=== PATIENT | male | born 1950 | race Caucasian/White ===

== ENCOUNTER 2023-01-25 14:27 | Observation (INO) | payer MEDICARE, MEDICAID, SELFPAY ==
[2023-01-25] VITALS (8 sets, daily range): BP systolic 133–143; BP diastolic 73–97; PULSE 66–96; RESP 16–30; TEMP 36.6–37.2; O2SAT 94–99; BMI 23.3; BMI 21.5
--- NOTE | 2023-01-25 14:55 | EKG12_ITS ---
Test Reason : Blood Pressure : / mmHG Vent. Rate : 067 BPM Atrial Rate : 067 BPM P-R Int : 160 ms QRS Dur : 092 ms QT Int : 416 ms P-R-T Axes : 084 063 052 degrees QTc Int : 439 ms Normal sinus rhythm Poor R wave progression Confirmed by ISAAC JACKSON, TEE ([id number]), assignment editor ELIZABETH CHRISTENSEN ([id number]) on 01/27/2023 10:03:06 AM Referred By: LIZ Confirmed By:TEE GRAY MD
--- NOTE | 2023-01-25 14:57 | EDS_ITS ---
HPI History of Present Illness Chief Complaint: Shortness of Breath Informant: patient Narrative Narrative: Worsening dyspnea wheeze since this morning along with left-sided sharp chest pain. No nausea or vomiting. No home oxygen. 1 pack/day smoker. No history of diabetes. History of chronic back pain. Reports similar symptoms from 2 months ago when he received 1 heart stent at [facility]. He states only 1 vessel no other blockages. Discussed his medications he states he does not take antiplatelet medicines we discussed aspirin Plavix Brilinta. He is not on a statin either. He brought his medicines which was reviewed noting metoprolol, gabapentin, and tizanidine. He states he was not scheduled for any cardiac rehab with a stent placement. Prior similar symptoms: Yes PFSH PFS Medical History Asthma COPD (chronic obstructive pulmonary disease) Hypertension Allergy/AdvReac Type Severity Reaction Status Date / Time ketorolac [From Toradol] Allergy Other Verified 01/25/23 14:30 tetracycline Allergy Hives Verified 01/25/23 14:30 Surgical History Previous back surgery Stented coronary artery Social History Smoking Status: Current every day smoker tobacco type: cigarettes ROS ROS ED Constitutional Constitutional ED: Denies chills, fever(s) or sweats Eyes Eyes: Denies change in vision ENT ENT ED: Denies dysphagia or sore throat Cardiovascular Cardiovascular: Reports chest pain; Denies leg edema, palpitations or racing heartbeat Respiratory/Chest Respiratory/Chest: Reports dyspnea; Denies cough or dyspnea on exertion Gastrointestinal Gastrointestinal: Denies abdominal pain, diarrhea, nausea or vomiting Genitourinary Genitourinary ED: Denies dysuria, hematuria or urinary frequency Musculoskeletal Musculoskeletal: Denies back pain, extremity pain or neck pain Integumentary Denies rash or wounds Neurologic Neurologic: Denies headache(s), paresthesias or weakness EXAM Physical Exam Const Vital Signs: 01/25/23 14:32 01/25/23 14:34 01/25/23 15:24 Temperature 98.1 F Temperature Source Temporal Pulse Rate 72 Respiratory Rate 23 H Respiratory Pattern Tachypnea Blood Pressure 137/97 H Blood Pressure Mean 110 Pulse Ox 99 Oxygen Delivery Method Room Air Room Air 01/25/23 15:24 01/25/23 17:32 01/25/23 17:37 Temperature Temperature Source Pulse Rate 66 71 Respiratory Rate 24 H 30 H Respiratory Pattern Tachypnea Blood Pressure 143/73 H Blood Pressure Mean 96 Pulse Ox 96 Oxygen Delivery Method Positive well nourished and well developed Constitutional Narrative: Speaking in short sentences mild sensory muscle use. General Appearance ED: well developed HEENT Reports moist mucous membranes normocephalic and atraumatic Eyes PERRL, EOMs intact bilaterally and conjunctivae normal General Eye ED: Yes normal appearance of both eyes Neck no lymphadenopathy and supple General: Negative for tenderness Chest Wall Chest: Negative for tenderness Resp normal respiratory effort Resp Narrative: Expiratory wheezes, slight tachypnea Effort and Inspection: symmetric chest movement Cardio regular rate, regular rhythm and no murmurs Peripheral Pulses: pulses 2+ throughout GI normal to inspection, nondistended, normoactive bowel sounds and non-tender Palpation: Negative for guarding or rebound tenderness present Back/Spine no CVA tenderness and no thoracic nor lumbar tenderness Extremity normal to inspection General Extremety ED: Negative for edema or tenderness General Extremity: Negative for edema Neuro oriented x3 and no sensory deficits noted Sensorium / Orientation: awake and alert Skin no rashes or lesions noted and no wounds MDM MDM MDM Narrative Medical decision making narrative: Interventions / MDM: Differential diagnosis: COPD exacerbation, atypical chest pain, ACS Diagnosis considered but do not suspect: N/A My EKG interpretation: Sinus rate of 67, no ST or T wave changes. EKG #2 at 1654: Unchanged Imaging independently reviewed and interpreted by myself: 1 view chest x-ray no infiltrates External documents reviewed: Clinisync evaluation: Heart catheterization September 09, 2022 from [facility] 80% LAD with drug-eluting stent, 60% left circumflex, 4050% RCA. EF of 55%. Also L2-L3 lumbar decompression surgery November of this year. Test considered but not ordered:N/A ED course: Patient presenting with wheezing speaking in short sentences he is given steroids aerosol treatments with improvement symptoms. With chest pain aspirin was given. Cardiac work-up initiated. Chest x-ray. Re-evaluation: stable, improved dyspnea and wheezing chest pain resolved with aspirin per patient. 3.3 or replaced. Initial troponin and sent before in the range. I was able to obtain records no needed have a cath with stent in August 5 months ago there was recommend dual platelet therapy for a month. He reports he has not sent home with any of his medications. I did reach out to display department manager Dr. Gomez, states and agrees with delta troponin if negative, he will need his aspirin Plavix and statin and following with his display department manager. Reported with positive recommended transfer to his display department manager. Results delta troponin was negative. Repeat EKG was also negative. Low back discussed with patient plan of care with plan on writing prescriptions for his medications however he requests asking to see social work. Further discussion with him, he states he cannot get his medications and afford them for at least a month. There is no current social sciences chair case management available. Therefore I spoke with hospitalist Dr. Whiting. Discussed patient's issues and presentation. He will be admitted to observation as to PCU. Disposition discussed with patient/family/significant other: Patient Case discussed with consulting clinician: Cardiology, Dr. Gomez History & Record Review Additional record(s) reviewed:: Prior outpatient record Lab Data Attestation: I reviewed the patient's lab results. Labs: Laboratory Results - last 24 hr 01/25/23 01/25/23 01/25/23 14:45 14:45 14:45 WBC 7.0 RBC 4.71 Hgb 14.7 Hct 43.5 MCV 92.4 MCH 31.2 MCHC 33.8 RDW Std Deviation 45.8 H RDW Coeff of Dania 13.4 Plt Count 263 MPV 9.7 Immature Gran % (Auto) 0.100 Neut % (Auto) 63.0 Lymph % (Auto) 24.1 Camp % (Auto) 10.8 H Eos % (Auto) 1.3 Baso % (Auto) 0.7 Absolute Neuts (auto) 4.4 Absolute Lymphs (auto) 1.69 Nucleated RBC % 0 PT 13.6 INR 1.1 APTT 26.2 Sodium 136 Potassium 3.3 L Chloride 104 Carbon Dioxide 24.0 Anion Gap 8 BUN 22 H Creatinine 1.01 Estim Creat Clear Calc 78.00 Est GFR (MDRD) Af Amer 94 Est GFR (MDRD) Non-Af 77 BUN/Creatinine Ratio 21.8 H Glucose 114 H Calcium 9.5 Troponin I High Sens 74 01/25/23 17:10 WBC RBC Hgb Hct MCV MCH MCHC RDW Std Deviation RDW Coeff of Dania Plt Count MPV Immature Gran % (Auto) Neut % (Auto) Lymph % (Auto) Camp % (Auto) Eos % (Auto) Baso % (Auto) Absolute Neuts (auto) Absolute Lymphs (auto) Nucleated RBC % PT INR APTT Sodium Potassium Chloride Carbon Dioxide Anion Gap BUN Creatinine Estim Creat Clear Calc Est GFR (MDRD) Af Amer Est GFR (MDRD) Non-Af BUN/Creatinine Ratio Glucose Calcium Troponin I High Sens 71 Radiography Diagnostic Testing: Clinical Impression(s) from Imaging Studies Chest X-Ray 01/25/23 15:09 IMPRESSION: Hyperinflation. Findings suggest mild scarring at the lung bases. Blunting of the right cusp and ankle. Electronically Signed: Wilmer Wilkinson MD at 15:26 EST , EKG Initial EKG: Attestation: I personally reviewed and interpreted this EKG as follows: Comments: Sinus rate of 67, no ST or T wave changes Discharge Plan Triage Chief Complaint: Shortness of Breath Other Complaint: Chest Pain ED Provider: Storm Sawyer Dx/Rx/DC Orders Clinical Impression: Chest pain, COPD exacerbation, Acute hypokalemia, CAD (coronary artery disease) Primary Care Provider: Care Physician,No Primary Disposition [facility]
--- NOTE | 2023-01-25 15:09 | RAD_ITS ---
STUDY: X-RAY CHEST REASON FOR EXAM: Male, 73 years old. Intermittent left-sided chest pain and shortness of breath. History of COPD and asthma. TECHNIQUE: Single AP portable view of the chest. COMPARISON: None. FINDINGS: EKG electrodes are seen. Small calcified left axillary lymph nodes. Hyperinflation. Mild degree of increased linear markings at the lung bases suggestive of scarring. Blunting of the right costophrenic angle. Normal size heart. Normal mediastinum and jill. Normal visualized pulmonary arteries. There is atherosclerotic tortuosity of the aortic arch and descending thoracic aorta. There are diffuse degenerative changes of the visualized thoracic spine. Normal visualized ribs, clavicles, and shoulders. There is no demonstrated abnormality of the visualized soft tissue structures of the upper abdomen. RAD/Chest 1 View (Portable) IMPRESSION: Hyperinflation. Findings suggest mild scarring at the lung bases. Blunting of the right cusp and ankle. Electronically Signed: Wilmer Wilkinson MD at 15:26 EST ,
[2023-01-25 15:16] LABS: Absolute Lymphocyte Count 1.69 X10^3/uL (0.83-4.51); Absolute Neutrophil Count 4.4 X10^3/uL (2.0-7.7); Basophil# 0.05 X10^3/uL; Basophil% 0.7 % (0-1); Eosinophil# 0.09 X10^3/uL; Eosinophils% 1.3 % (0-5); Hematocrit 43.5 % (40-54); Hemoglobin 14.7 g/dL (13.0-16.5); Lymphocyte # 1.69 X10^3/ul (0.83-4.51); Lymphocyte % 24.1 % (19-41); Mean Corp Hgb Conc 33.8 g/dL (32-36); Mean Corpuscular Hgb 31.2 pg (27.0-32.0); Mean Corpuscular Volume 92.4 fL (80-94); Mean Platelet Vol. 9.7 fl (6.2-12.0); Monocyte# 0.76 X10^3/uL; Monocyte% 10.8 % (0-10); NRBC Flagged by Analyzer 0 % (0-5); Neutrophil # 4.42 X10^3/uL (2.7-7.7); Platelet Count 263 K/mm3 (150-450); RBC Distribution Width CV 13.4 % (11.6-14.6); RBC Distribution Width SD 45.8 fl (35.1-43.9); Red Blood Count 4.71 M/mm3 (4.6-6.2)
[2023-01-25 15:18] LABS: International Normalized Ratio 1.1; Partial Thromboplast Time 26.2 Seconds (24.1-36.2); Prothrombin Time (Protime)PT. 13.6 SECONDS (11.7-14.9)
[2023-01-25] MEDS: Aspirin 81 MG TAB.CHEW 324 MG PO (15:20)
[2023-01-25] MEDS: MethylPREDNISolone 125 MG/2 ML Vial IV (15:23)
[2023-01-25] MEDS: Albuterol 2.5 MG/3 ML VIAL.NEB. INHALATION ×3 (15:24)
[2023-01-25] MEDS: Ipratropium/Albuterol Sulfate 3 ML AMPUL.NEB INHALATION ×2 (15:24→20:03)
[2023-01-25 15:32] LABS: Anion Gap 8 (5-15); BUN 22 mg/dL (7-18); BUN/Creat Ratio 21.8 RATIO (10-20); Calcium,Total 9.5 mg/dL (8.5-10.1); Chloride 104 mmol/L (98-107); Creatinine, Serum 1.01 mg/dL (0.70-1.30); EST Glomerular Filtration Rate 77 mL/min (>60); Est Glom Filt Rate - Afr Amer 94 mL/min (>60); Glucose 114 mg/dL (74-106); Potassium 3.3 mmol/L (3.5-5.1); Sodium Level 136 mmol/L (136-145); Troponin-I HS (w/2H Reflex) 74 pg/mL (3.0-78.0)
--- NOTE | 2023-01-25 15:45 | NURSING ---
NO OLD EKGS
--- NOTE | 2023-01-25 16:46 | EKG12_ITS ---
Test Reason : Blood Pressure : / mmHG Vent. Rate : 071 BPM Atrial Rate : 071 BPM P-R Int : 160 ms QRS Dur : 090 ms QT Int : 414 ms P-R-T Axes : 077 012 055 degrees QTc Int : 449 ms Normal sinus rhythm Poor R wave progression Confirmed by ISAAC JACKSON, TEE ([id number]), continuity editor ELIZABETH CHRISTENSEN ([id number]) on 01/27/2023 10:03:22 AM Referred By: TRAY Confirmed By:TEE GRAY MD
[2023-01-25 17:05] LABS: Reflex Troponin-HS? (from REC) Y
[2023-01-25] MEDS: Potassium Chloride Oral Tablet 20 MEQ 40 MEQ PO (17:37)
[2023-01-25 17:39] LABS: Troponin-I HS 71 pg/mL (3.0-78.0)
--- NOTE | 2023-01-25 18:14 | PCM.HP.STD ---
[facility] - General General Date of Admission: 01/25/23 Date of Service: 01/25/23 Chief Complaint: Left-sided chest pain and shortness of breath sudden onset today morning. [facility] Narrative YAJAIRA HAYWOOD, is a 73 M who presents with history of non-STEMI, COPD and emphysema came to ED for sudden onset of left-sided chest pain and shortness of breath at rest.Chest pain was sharp sharp quality, localized without radiation to intrascapular LER or left arm. It was 5-6/10 in intensity. Patient had similar symptoms in August 2022 when he was admitted in [place] and had PCI/stent in mid LAD. Patient also had an echo at that time discussed in assessment and plan. Patient has history of smoking 1 pack/day and has chronic cough with sputum production but denies any change in severity or characteristic of cough or sputum production. No fever. Patient states easily gets short of breath on walking 150 to 200 feet or climbing stairs. He also gets short of breath/chest pain when he is stressed out. Patient is homeless and cannot afford his medications therefore is not taking normal antiplatelet agent. Patient also had back surgery about a month ago including clinic. Patient did not had cardiac rehab or PT OT after back surgery. Patient uses cane for walking. Denies any recent fall or syncope. In ED, patient vitals were in normal range. No hypoxia. Patient had 2 high-sensitivity troponin and EKG that did not show any acute change. Patient is further admitted. Social history: Patient is smokes 1 pack/day. Denies heavy drinking alcohol or substance use. Family history: Positive for coronary artery disease and dyslipidemia. [facility] Medical History Asthma COPD (chronic obstructive pulmonary disease) Hypertension Home Medications gabapentin 300 mg tablet 300 mg PO BID 01/25/23 [History Last Taken Unknown] hydrochlorothiazide 25 mg tablet 25 mg PO DAILY 01/25/23 [History Last Taken Unknown] metoprolol tartrate 50 mg tablet 50 mg PO BID 01/25/23 [History Last Taken Unknown] tizanidine 6 mg capsule 6 mg PO TID PRN Muscle Spasm 01/25/23 [History Last Taken Unknown] Allergy/AdvReac Type Severity Reaction Status Date / Time ketorolac [From Toradol] Allergy Other Verified 01/25/23 14:30 tetracycline Allergy Hives Verified 01/25/23 14:30 Surgical History Previous back surgery Stented coronary artery Social History Smoking Status: Current every day smoker tobacco type: cigarettes ROS ROS Narrative Constitutional: Reports fatigue and weakness. No fever. HEENT: Reports systems reviewed and no addt'l complaints, except as documented Respiratory/Chest: Mild dyspnea on exertion. Chronic cough and sputum production. Gastrointestinal: Denies coffee ground emesis, hematemesis or vomiting Genitourinary: Denies burning urination or new urinary tract symptoms Musculoskeletal: Left lower extremity is weaker than right. Uses cane. Denies recent fall. Spine:Chronic back pain, sciatica in nature, radiation to legs left more than right, lumbar radiculopathy. Chronic left lower extremity numbness and tingling but weakness and numbness tingling proved after surgery. Neurologic: Denies seizure-like activity skin: No ulcer. No rash Endocrinology: Reports systems reviewed and no addt'l complaints, except as documented Hematologic/Lymphatic: Reports systems reviewed and no addt'l complaints, except as documented Rest 14 ROS are negative except as mentioned in HPI Vital Signs Vital Signs Vital Signs: 01/25/23 14:32 01/25/23 14:34 01/25/23 15:24 Temperature 98.1 F Temperature Source Temporal Pulse Rate 72 Respiratory Rate 23 H Respiratory Pattern Tachypnea Blood Pressure 137/97 H Blood Pressure Mean 110 Pulse Ox 99 Oxygen Delivery Method Room Air Room Air 01/25/23 15:24 01/25/23 17:32 01/25/23 17:37 Temperature Temperature Source Pulse Rate 66 71 Respiratory Rate 24 H 30 H Respiratory Pattern Tachypnea Blood Pressure 143/73 H Blood Pressure Mean 96 Pulse Ox 96 Oxygen Delivery Method Weight Weight: 181 lb 7.047 oz Body Mass Index (BMI) 23.3 Physical Exam Narrative Physical exam General: Alert, Oriented x3, Cooperative HEENT: Atraumatic, PERRLA, EOMI, Normocephalic Oral: Oral mucosa moist. No Gingival or Mucosal Lesions/ Ulcerations Neck: Supple, No JVD, Negative Carotid Bruits Lungs: Air entry diminished in bilateral lung bases. Bilateral expiratory rhonchi and wheezing. Cardiovascular: Regular rate, Regular Rhythm, Normal S1, Normal S2, No murmurs Abdomen: Bowel Sounds Present, Soft, Non Tender, Non-Distended : No renal angle tenderness. No suprapubic tenderness. Extremities: No edema, Capillary Refill Less than 3 Seconds Skin: No rashes, No breakdown Musculoskeletal: Muscle strength, 4/5 at left hip and knee joints, 4+/5 at right hip and knee joints. Status post left hip replacement Spine: Surgical scar of lumbar spine from L1-L5. No acute tenderness. ROM restricted at lumbar spine. Neurological: Cranial nerves II-XII grossly intact, DTR 2+/4, decreased gross sensation in the left lower extremity as compared to right Psych/Mental Status: Flat affect. Results Lab / Micro Data Result Diagrams: 01/25/23 14:45 01/25/23 14:45 Labs: Laboratory Results - last 24 hr 01/25/23 14:45: WBC 7.0, RBC 4.71, Hgb 14.7, Hct 43.5, MCV 92.4, MCH 31.2, MCHC 33.8, RDW Std Deviation 45.8 H, RDW Coeff of Dania 13.4, Plt Count 263, MPV 9.7, Immature Gran % (Auto) 0.100, Neut % (Auto) 63.0, Lymph % (Auto) 24.1, [place] % (Auto) 10.8 H, Eos % (Auto) 1.3, Baso % (Auto) 0.7, Absolute Neuts (auto) 4.4, Absolute Lymphs (auto) 1.69, Nucleated RBC % 0 01/25/23 14:45: PT 13.6, INR 1.1, APTT 26.2 01/25/23 14:45: Sodium 136, Potassium 3.3 L, Chloride 104, Carbon Dioxide 24.0, Anion Gap 8, BUN 22 H, Creatinine 1.01, Estim Creat Clear Calc 78.00, Est GFR (MDRD) Af Amer 94, Est GFR (MDRD) Non-Af 77, BUN/Creatinine Ratio 21.8 H, Glucose 114 H, Calcium 9.5, Troponin I High Sens 74 01/25/23 17:10: Troponin I High Sens 71 Radiology Impression Chest X-Ray 01/25/23 15:09 IMPRESSION: Hyperinflation. Findings suggest mild scarring at the lung bases. Blunting of the right cusp and ankle. Electronically Signed: Wilmer Wilkinson MD at 15:26 EST , Assessment & Plan Assessment/Plan (1) Chest pain: (2) COPD exacerbation: PLAN: Plan This 72-year-old gentleman is being admitted for acute chest pain and shortness of breath sudden onset and nonadherence to his medication. 1. Atypical chest pain shortness of breath possible unstable angina: Patient is being admitted in PCU. 2 serial Hyser troponin and EKG does not show change. Third troponin after 6 hours of first 1. Pharmacological nuclear stress test tomorrow morning. Patient had cardiac cath on 08/26/2022 reported ELVIS in mid to distal LAD. Patient not taking dual antiplatelet agent and other cardiac medications as he is not able to afford it. Patient also had an echo at that time reported LV mildly dilated, systolic function normal, normal LV diastolic function. EF 60%. RV normal in size and systolic function. Patient did not had cardiac rehab. 2. Single-vessel coronary artery disease: As mentioned above. 3. Lumbar spinal stenosis, possible spondylolisthesis, degenerative disc disease with lumbar radiculopathy status post lumbar decompression surgery: Patient exact diagnosis and procedure not clear as it was done in [facility] about a month ago. Patient did not had rehab after that. PT and OT ordered. Patient is states weakness of the left leg and numbness tingling improved after surgery. Patient still uses cane. 4. COPD/emphysema/asthmatic bronchitis: Patient has mild COPD exacerbation. Started on prednisone 40 mg daily, DuoNeb, incentive spirometry and Pep. 5. Hypertension: Blood pressure is in normal range. 6. Chronic mild protein calorie malnutrition: Patient has mild atrophy of muscles of thigh and calf, loss of subcutaneous fat. Landscaping Specialist consult. VT prophylaxis moderate risk: Lovenox 40 mgsubcu daily. Living will/advanced directive/end of life care: Patient does not have living will or advanced directive. After discussion of benefits/risks procedures involved with full code, DNR CC arrest and DNR CC, the patient opted for full code. Patient does not want to be prolonged or vegetable on the ventilator if the cause is irreversible or terminal. Patient does want artificial life support including intubation, tube feed, ventilator and/chest compression, central venous catheter, vasopressor and DC shock if needed Total time spent in [id number] encounter in discussion of advanced directive 17 minutes. Charges/Coding Visit Charges Inpatient E&M: 09676 Init Hosp L3 Procedures Hospitalists Procedures: 45111 Advncd Care Plan 30 Min
[2023-01-25 18:44] LABS: Magnesium 1.8 mg/dL (1.6-2.6)
[2023-01-25] MEDS: oxyCODONE 5 MG Tablet PO (20:12)
[2023-01-25] MEDS: 0.9% Normal Saline 1,000 ML 100 ML IV (20:12)
[2023-01-25] MEDS: 0.9% Saline Lock 10 ML Syringe IV (20:16)
[2023-01-25] MEDS: Clopidogrel Bisulfate 75 MG Tablet PO (20:39)
[2023-01-25] MEDS: Atorvastatin Calcium 40 MG Tablet PO (20:40)
[2023-01-25] MEDS: guaiFENesin 1,200 MG Tablet 1200 MG PO (20:40)
[2023-01-25] MEDS: Metoprolol Tartrate 50 MG Tablet PO (20:40)
[2023-01-25] MEDS: predniSONE 20 MG Tablet 40 MG PO (20:41)
[2023-01-25] MEDS: Gabapentin 300 MG Capsule PO (20:41)
[2023-01-25 21:09] LABS: Troponin-I HS 70 pg/mL (3.0-78.0)
--- NOTE | 2023-01-25 21:51 | EKG12_ITS ---
Test Reason : am ekg Blood Pressure : / mmHG Vent. Rate : 053 BPM Atrial Rate : 053 BPM P-R Int : 170 ms QRS Dur : 092 ms QT Int : 478 ms P-R-T Axes : 068 058 054 degrees QTc Int : 448 ms Sinus bradycardia Confirmed by ISAAC JACKSON, TEE ([id number]), electronic news gathering editor ELIZABETH CHRISTENSEN ([id number]) on 01/27/2023 10:27:41 AM Referred By: Henok Confirmed By:TEE GRAY MD
[2023-01-25] MEDS: traZODone 50 MG Tablet 25 MG PO (23:28)
[2023-01-26] VITALS (9 sets, daily range): BP systolic 120–157; BP diastolic 61–78; PULSE 56–65; RESP 14–24; TEMP 36.4–36.8; O2SAT 94–97
[2023-01-26] MEDS: oxyCODONE 5 MG Tablet PO ×4 (04:47→22:27)
[2023-01-26] MEDS: tiZANidine HCl 2 MG Tablet 6 MG PO ×3 (04:50→22:27)
--- NOTE | 2023-01-26 05:55 | EKG12_ITS ---
Test Reason : CP Blood Pressure : / mmHG Vent. Rate : 045 BPM Atrial Rate : 045 BPM P-R Int : 156 ms QRS Dur : 094 ms QT Int : 464 ms P-R-T Axes : 079 067 051 degrees QTc Int : 401 ms Sinus bradycardia Otherwise normal ECG Confirmed by ISAAC JACKSON, TEE ([id number]), proposal editor ELIZABETH CHRISTENSEN ([id number]) on 01/28/2023 9:08:43 AM Referred By: Confirmed By:TEE GRAY MD
[2023-01-26 06:20] LABS: Absolute Lymphocyte Count 0.54 X10^3/uL (0.83-4.51); Absolute Neutrophil Count 4.4 X10^3/uL (2.0-7.7); Basophil# 0.01 X10^3/uL; Basophil% 0.2 % (0-1); Hematocrit 38.3 % (40-54); Hemoglobin 12.5 g/dL (13.0-16.5); Lymphocyte # 0.54 X10^3/ul (0.83-4.51); Lymphocyte % 10.4 % (19-41); Mean Corp Hgb Conc 32.6 g/dL (32-36); Mean Corpuscular Hgb 30.8 pg (27.0-32.0); Mean Corpuscular Volume 94.3 fL (80-94); Mean Platelet Vol. 9.5 fl (6.2-12.0); Monocyte# 0.21 X10^3/uL; NRBC Flagged by Analyzer 0 % (0-5); Neutrophil # 4.43 X10^3/uL (2.7-7.7); POSITIVE DIFFERENTIAL YES; Platelet Count 208 K/mm3 (150-450); RBC Distribution Width CV 13.2 % (11.6-14.6); Red Blood Count 4.06 M/mm3 (4.6-6.2); White Blood Count 5.2 K/mm3 (4.4-11.0)
[2023-01-26 06:33] LABS: Differential Indicated SCAN CRITERIA MET
[2023-01-26] MEDS: Ipratropium/Albuterol Sulfate 3 ML AMPUL.NEB INHALATION ×3 (06:39→19:21)
[2023-01-26] MEDS: Clopidogrel Bisulfate 75 MG Tablet PO (06:44)
[2023-01-26] MEDS: Aspirin E.C. 81 MG Tablet PO (06:44)
[2023-01-26 06:48] LABS: Macrocytosis RARE
[2023-01-26 07:11] LABS: Anion Gap 8 (5-15); BUN 20 mg/dL (7-18); BUN/Creat Ratio 29.1 RATIO (10-20); Chloride 109 mmol/L (98-107); Cholesterol 133 mg/dL (200); Creatinine, Serum 0.69 mg/dL (0.70-1.30); EST Glomerular Filtration Rate 121 mL/min (>60); Est Glom Filt Rate - Afr Amer 146 mL/min (>60); Estimated Creatinine Clearance 73.03 ml/min; Glucose 129 mg/dL (74-106); High Density Lipoprotein 53 mg/dL; Potassium 4.1 mmol/L (3.5-5.1); Sodium Level 137 mmol/L (136-145); Thyroid Stim Hormone (TSH) 0.26 uIU/mL (0.358-3.74); Triglycerides 40 mg/dL; Very Low Density Lipoprotein 8 mg/dL (5-40)
--- NOTE | 2023-01-26 09:38 | STRESSREP_ITS ---
Stress Test Report Date: 01-26-2023 Procedure: Pharmacologic stress nuclear imaging study Indications: Atypical chest pain; history of non-ST segment elevation CO Consent: Per the patient Procedure: The patient underwent pharmacologic (Regadenoson 0.4mg ) evaluation with a peak heart rate of 71 beats per minute (47%predicted maximal heart rate) and a resti ng blood pressure of 144/84 mmHg and a peak blood pressure of 144/84 mmHg. The baseline ECG demonstrated sinus bradycardia. The peak pharmacologic ECG demonstrated no obvious ECG changes. There were no cardiac dysrhythmias pretest, during pharmacologic infusion, or recovery. There was no complaint of chest discomfort during pharmacologic infusion or recovery. The examination was discontinued secondary to completion of protocol. Impression: 1. Pharmacologic (Regadenoson) evaluation 2. Peak pharmacologic ECG with no obvious ECG change. 3. There were no cardiac dysrhythmias pretest, during pharmacologic infusion, or recovery. 4. Nuclear images pending Myocardial perfusion imaging study: Technique: The patient was injected with 12.0 millicuries of technetium 99m Cardiolite and subsequently rest SPECT Cardiolite nuclear imaging was obtained in the horizontal long, vertical long, and short axis views. The patient underwent pharmacologic (Regadenoson) evaluation with a peak heart rate of 71 beats per minute (47% percent predicted maximal heart rate) and a resting blood pressure of 144/84 mmHg and a peak blood pressure of 144/84 mmHg. The patient was injected with 35.0 millicuries of technetium 99m Cardiolite and subsequently stress SPECT Cardiolite nuclear imaging was obtained in the horizontal long, vertical long, and short axis views. A gated Cardiolite study at peak stress was obtained. Interpretation: Rest and stress SPECT Cardiolite nuclear imaging status post realignment, normalization, and attenuation correction demonstrate relative uniform tracer uptake and myocardial perfusion appearing within normal limits. There is end systolic thickening and brightening. The gated Cardiolite study demonstrates myocardial thickening and inward wall motion. The reported LVEF is 68%. Impression: 1. Relative uniform tracer uptake and myocardial perfusion appearing within normal limits. 2. The gated Cardiolite study reports an LVEF of 68%. This note was generated with [employer] software. It may contain incorrect words, spelling, and punctuation that were not noted in checking the note before signing.
[2023-01-26] MEDS: Pantoprazole Sodium 40 MG Tablet PO (10:10)
[2023-01-26] MEDS: guaiFENesin 1,200 MG Tablet 1200 MG PO ×2 (10:10→22:28)
[2023-01-26] MEDS: predniSONE 20 MG Tablet 40 MG PO (10:10)
[2023-01-26] MEDS: hydroCHLOROthiazide 12.5mg 12.5 MG PO (10:11)
[2023-01-26] MEDS: Gabapentin 300 MG Capsule PO ×2 (10:14→22:27)
--- NOTE | 2023-01-26 11:08 | PCM.DC ---
Discharge Instructions Diet Discharge Diet: 2000 mg Sodium Diet Activity Discharge Activity: Return to Normal Activity Weight Bearing Status: Weight bearing as tolerated Dressing / Incision Call your doctor if you observe: Fever of 101 or Higher, Coldness, Increased Pain, Numbness or Tingling, Change in Color, Inability to urinate, Inability to have a bowel movement, Shortness of breath, Dizziness, Fainting spells, Swelling in the ankles, Chest pain, Prolonged hiccupping, Increased palpitations (irregular heartbeat) and Calf discomfort Follow Up Care When: IN 2 WEEKS Test Results: Test results from this visit will be discussed in further detail at your follow-up appointment, if applicable. Discharge Plan Admission Admit Date/Time: 01/25/23 18:07 Primary Reason for Your Visit: atypical chest pain, copd Attending Provider: Juan F Whiting Primary Care Provider: Care Physician,Sarina Primary Discharge Orders/Prescriptions Prescriptions: New atorvastatin 40 mg Tablet 40 mg PO QHS Qty: 30 2RF clopidogrel 75 mg Tablet 75 mg PO DAILY Qty: 30 2RF aspirin 81 mg Tablet,Delayed Release (Dr/Ec) 81 mg PO BREAKFAST Qty: 30 3RF pantoprazole 40 mg Tablet,Delayed Release (Dr/Ec) 40 mg PO DAILY Qty: 30 0RF prednisone 10 mg tablets,dose pack See Taper PO DAILY Qty: 30 0RF Taper: Prednisone Taper 40 mg WITH BREAKFAST for 3 Days and 0 Hour 30 mg WITH BREAKFAST for 3 Days and 0 Hour 20 mg WITH BREAKFAST for 3 Days and 0 Hour 10 mg WITH BREAKFAST for 3 Days and 0 Hour Rx Instructions: 40 mg with breakfast for 3 Days; 30 mg for 3 Days; 20 mg for 3 Days; 10 mg for 3 Days albuterol sulfate 90 mcg/actuation HFA aerosol inhaler 2 puff inhalation Q6H PRN (Reason: shortness of breath or wheezing) Qty: 8.5 0RF dextromethorphan-guaifenesin [Mucinex DM] 60-1,200 mg tablet extended release 12 hr 1 tab PO Q12H 7 Days Qty: 14 0RF Continued gabapentin 300 mg Tablet 300 mg PO BID tizanidine 6 mg Capsule 4 mg PO Q6H PRN PRN (Reason: Muscle Spasm) metoprolol tartrate 50 mg Tablet 50 mg PO BID Qty: 60 2RF Changed hydrochlorothiazide 25 mg Tablet 12.5 mg PO DAILY Qty: 30 1RF Referrals / Follow Up: July Dunn MD [Med Staff - Active Staff] - Within 1 Month Gerald Tao DO [Med Staff - Active Staff] - Within 1 Month (for PFT, Chr smoker) Care Physician,No Primary [Primary Care Provider] - [facility] Doctor,Out of [Non-Staff] - Disposition Disposition (needs filled in before D/C Order can be placed): Home, Self Care
--- NOTE | 2023-01-26 11:17 | DS.PCM_ITS ---
Providers Date of Admission: 01/25/23 Date of Discharge: 01/26/23 Primary Care Physician: No Primary Care Phys Reason For Visit: ATYPICAL CHEST PAIN, COPD EXA Diagnosis Discharge Diagnosis (1) Chest pain: Status: Acute Code(s): R07.9 - Chest pain, unspecified (2) COPD exacerbation: Status: Chronic Code(s): J44.1 - Chronic obstructive pulmonary disease with (acute) exacerbation Plan This 72-year-old gentleman is being admitted for acute chest pain and shortness of breath sudden onset and nonadherence to his medication. 1. Atypical chest pain shortness of breath possible unstable angina: Patient is being admitted in PCU. 2 serial Hyser troponin and EKG does not show change. Third troponin after 6 hours of first 1. Pharmacological nuclear stress test tomorrow morning. Patient had cardiac cath on 08/26/2022 reported ELVIS in mid to distal LAD. Patient not taking dual antiplatelet agent and other cardiac m edications as he is not able to afford it. Patient also had an echo at that time reported LV mildly dilated, systolic function normal, normal LV diastolic function. EF 60%. RV normal in size and systolic function. Patient did not had cardiac rehab. MELINA risk score 4. 3/7:Serial troponin enzymes negative. Hypokalemia resolved. Patient had nuclear cardiac stress test which did not show stress-induced ischemia. Prescriptions given for aspirin, Plavix, metoprolol, HCTZ and atorvastatin. F asting profile LDL 72 HDL 53. TSH 0.26. Free T4 1.31. Thyroid function test suggestive of subclinical hyperthyroidism. Follow with cardiology clinic Dr. Dunn in 1 month. 2. Single-vessel coronary artery disease: As mentioned above. Patient has appointment with cardiology in [place] but does not want to go there. [place] social media executive following. Options given to follow-up cardiology in [place]. 3. Lumbar spinal stenosis, possible spondylolisthesis, degenerative disc disease with lumbar radiculopathy status post lumbar decompression surgery: Patient exact diagnosis and procedure not clear as it was done in [facility] about a month ago. Patient did not had rehab after that. PT and OT ordered. Patient is states weakness of the left leg and numbness tingling improved after surgery. Patient still uses cane. 4. COPD/emphysema/asthmatic bronchitis: Patient has mild COPD exacerbation. Started on prednisone 40 mg daily, DuoNeb, incentive spirometry and Pep. Patient given prescription for albuterol inhaler, tapering dose of prednisone, Mucinex DM and advised to continue incentive spirometry and Pep. Follow-up with Dr. Tao, pulmonary clinic in 1 month. 5. Hypertension: Blood pressure is in normal range. Blood pressure is much better. 6. Chronic mild protein calorie malnutrition: Patient has mild atrophy of muscles of thigh and calf, loss of subcutaneous fat. Custodial Operations Manager consult. VT prophylaxis moderate risk: Lovenox 40 mg subcu daily. Living will/advanced directive/end of life care: Patient does not have living will or advanced directive. After discussion of benefits/risks procedures involved with full code, DNR CC arrest and DNR CC, the patient opted for full code. Patient does not want to be prolonged or vegetable on the ventilator if the cause is irreversible or terminal. Patient does want artificial life support including intubation, tube feed, ventilator and/chest compression, central venous catheter, vasopressor and DC shock if needed Total time spent in [id number] encounter in discussion of advanced directive 17 minutes. Medications at Discharge Home Medications gabapentin 300 mg tablet 300 mg PO BID nerve pain 01/25/23 tizanidine 6 mg capsule 4 mg PO Q6H PRN PRN Muscle Spasm 01/25/23 albuterol sulfate 90 mcg/actuation aerosol inhaler 2 puff inhalation Q6H PRN shortness of breath or wheezing #8.5 grams 01/26/23 aspirin 81 mg tablet,delayed release 81 mg PO BREAKFAST #30 tabs 01/26/23 atorvastatin 40 mg tablet 40 mg PO QHS #30 tabs 01/26/23 clopidogrel 75 mg tablet 75 mg PO DAILY #30 tabs 01/26/23 dextromethorphan-guaifenesin ER 60 mg-1,200 mg tab,extend release,12hr (Mucinex DM) 1 tab PO Q12H 7 days #14 tabs 01/26/23 hydrochlorothiazide 25 mg tablet 12.5 mg PO DAILY bp #30 tabs 01/26/23 metoprolol tartrate 50 mg tablet 50 mg PO BID bp #60 tabs 01/26/23 pantoprazole 40 mg tablet,delayed release 40 mg PO DAILY #30 tabs 01/26/23 prednisone 10 mg tablets in a dose pack See Taper PO DAILY #30 tabs 01/26/23 Physical Exam Narrative Physical exam General: Alert, Oriented x3, Cooperative HEENT: Atraumatic, PERRLA, EOMI, Normocephalic Oral: Oral mucosa moist. No Gingival or Mucosal Lesions/ Ulcerations Neck: Supple, No JVD, Negative Carotid Bruits Chest wall/lungs: Funnel shapedl chest. Air entry diminished in bilateral lung bases. Bilateral expiratory rhonchi present. Wheezing has improved. Cardiovascular: Regular rate, Regular Rhythm, Normal S1, Normal S2, No murmurs Abdomen: Bowel Sounds Present, Soft, Non Tender, Non-Distended : No renal angle tenderness. No suprapubic tenderness. Extremities: No edema, Capillary Refill Less than 3 Seconds Skin: No rashes, No breakdown Musculoskeletal: Muscle strength, 4/5 at left hip and knee joints, 4+/5 at right hip and knee joints. Status post left hip replacement Spine: Surgical scar of lumbar spine from L1-L5. No acute tenderness. ROM restricted at lumbar spine. Neurological: Cranial nerves II-XII grossly intact, DTR 2+/4, decreased gross sensation in the left lower extremity as compared to right Psych/Mental Status: Flat affect. Weight / BMI Weight Weight: 167 lb 15.876 oz Body Mass Index (BMI) 21.5 ABG / Lab / Microbiology Data Result Diagrams: 01/26/23 06:07 01/26/23 06:07 Laboratory: Laboratory Results - last 24 hr 01/25/23 14:45: WBC 7.0, RBC 4.71, Hgb 14.7, Hct 43.5, MCV 92.4, MCH 31.2, MCHC 33.8, RDW Std Deviation 45.8 H, RDW Coeff of Dania 13.4, Plt Count 263, MPV 9.7, Immature Gran % (Auto) 0.100, Neut % (Auto) 63.0, Lymph % (Auto) 24.1, Snyder % (Auto) 10.8 H, Eos % (Auto) 1.3, Baso % (Auto) 0.7, Absolute Neuts (auto) 4.4, Absolute Lymphs (auto) 1.69, Nucleated RBC % 0 01/25/23 14:45: PT 13.6, INR 1.1, APTT 26.2 01/25/23 14:45: Sodium 136, Potassium 3.3 L, Chloride 104, Carbon Dioxide 24.0, Anion Gap 8, BUN 22 H, Creatinine 1.01, Estim Creat Clear Calc 78.00, Est GFR (MDRD) Af Amer 94, Est GFR (MDRD) Non-Af 77, BUN/Creatinine Ratio 21.8 H, Glucose 114 H, Calcium 9.5, Troponin I High Sens 74 01/25/23 17:10: Troponin I High Sens 71 01/25/23 17:10: Magnesium 1.8 01/25/23 20:30: Troponin I High Sens 70 01/26/23 06:07: Sodium 137, Potassium 4.1, Chloride 109 H, Carbon Dioxide 20.0 L , Anion Gap 8, BUN 20 H, Creatinine 0.69 L, Estim Creat Clear Calc 73.03, Est GFR (MDRD) Af Amer 146, Est GFR (MDRD) Non-Af 121, BUN/Creatinine Ratio 29.1 H, Glucose 129 H, Calcium 9.0, Triglycerides 40, Cholesterol 133, LDL Cholesterol 72, VLDL Cholesterol 8, HDL Cholesterol 53, TSH 0.26 L 01/26/23 06:07: WBC 5.2, RBC 4.06 L, Hgb 12.5 L, Hct 38.3 L, MCV 94.3 H, MCH 30.8, MCHC 32.6, RDW Std Deviation 46.0 H, RDW Coeff of Dania 13.2, Plt Count 208, MPV 9.5, Immature Gran % (Auto) 0.400, Neut % (Auto) 85.0 H, Lymph % (Auto) 10.4 L, Snyder % (Auto) 4.0, Eos % (Auto) 0.0, Baso % (Auto) 0.2, Absolute Neuts (auto) 4.4, Absolute Lymphs (auto) 0.54 L, Nucleated RBC % 0, Macrocytosis RARE Radiography Diagnostic Testing: Radiology Impression Chest X-Ray 01/25/23 15:09 IMPRESSION: Hyperinflation. Findings suggest mild scarring at the lung bases. Blunting of the right cusp and ankle. Electronically Signed: Wilmer Wilkinson MD at 15:26 EST , D/C Instructions Discharge Diet: 2000 mg Sodium Diet Weight Bearing Status: Weight bearing as tolerated Call your doctor if you observe: Fever of 101 or Higher, Coldness, Increased Pain, Numbness or Tingling, Change in Color, Inability to urinate, Inability to have a bowel movement, Shortness of breath, Dizziness, Fainting spells, Swelling in the ankles, Chest pain, Prolonged hiccupping, Increased palpitations (irregular heartbeat) and Calf discomfort When: IN 2 WEEKS Meaningful Use Info Meaningful Use Diagnoses (Choose all that apply): None applicable Discharge Plan Admission Admit Date/Time: 01/25/23 18:07 Primary Reason for Your Visit: atypical chest pain, copd Attending Provider: Juan F Whiting Primary Care Provider: Care Physician,Sarina Primary Discharge Orders/Prescriptions Prescriptions: New atorvastatin 40 mg Tablet 40 mg PO QHS Qty: 30 2RF clopidogrel 75 mg Tablet 75 mg PO DAILY Qty: 30 2RF aspirin 81 mg Tablet,Delayed Release (Dr/Ec) 81 mg PO BREAKFAST Qty: 30 3RF pantoprazole 40 mg Tablet,Delayed Release (Dr/Ec) 40 mg PO DAILY Qty: 30 0RF prednisone 10 mg tablets,dose pack See Taper PO DAILY Qty: 30 0RF Taper: Prednisone Taper 40 mg WITH BREAKFAST for 3 Days and 0 Hour 30 mg WITH BREAKFAST for 3 Days and 0 Hour 20 mg WITH BREAKFAST for 3 Days and 0 Hour 10 mg WITH BREAKFAST for 3 Days and 0 Hour Rx Instructions: 40 mg with breakfast for 3 Days; 30 mg for 3 Days; 20 mg for 3 Days; 10 mg for 3 Days albuterol sulfate 90 mcg/actuation HFA aerosol inhaler 2 puff inhalation Q6H PRN (Reason: shortness of breath or wheezing) Qty: 8.5 0RF dextromethorphan-guaifenesin [Mucinex DM] 60-1,200 mg tablet extended release 12 hr 1 tab PO Q12H 7 Days Qty: 14 0RF Continued gabapentin 300 mg Tablet 300 mg PO BID tizanidine 6 mg Capsule 4 mg PO Q6H PRN PRN (Reason: Muscle Spasm) metoprolol tartrate 50 mg Tablet 50 mg PO BID Qty: 60 2RF Changed hydrochlorothiazide 25 mg Tablet 12.5 mg PO DAILY Qty: 30 1RF Referrals / Follow Up: July Dunn MD [Med Staff - Active Staff] - 02/16/23 9:45 am Gerald Tao DO [Med Staff - Active Staff] - Within 1 Month (for PFT, Polly gutierrez) Care Physician,No Primary [Primary Care Provider] - [facility] Doctor,Out of [Non-Staff] - Disposition Disposition (needs filled in before D/C Order can be placed): Home, Self Care Charges/Coding Visit Charges Inpatient E&M: 10995 Disch Hosp >30min
--- NOTE | 2023-01-26 11:32 | CASEMGMT ---
Social Work Consult: Resources, homeless, rx assistance. This social organization professor met with patient in room. Introduced self and social organization professor role. Patient agreeable to speak with this social organization professor. Living Situation: Homeless. Patient reports to have been homeless for the past 8 months. Patient states to have had a house prior to the 8 month. Patient states to have had a hospital stay and back surgery 8 months ago and to have lost housing due to not paying rent. Patient states to have had a roommate that was suppose to be paying the rent and patient provided roommate with funds for rent but he just left town with the money. Patient states to believe that patient is able to stay with girlfriend in [place] if needed. Patient states to think that patient needs rehab. Patient reports to have been in a halfway a few months ago and to have not been able to stay long due to my insurance. Patient reports to have recently obtained Medicaid. Patient states I found out yesterday that apparently I have Medication now. Patient interested in this social organization professor providing patient with list of nursing homes in the area if I need to go. Patient reports to have not been seen by therapy this hospital visit. Patient states to also have a hotel voucher if that is needed. Support System: Reports to have a girlfriend Elsa Paredes that lives in [place]. Patient states to have limited support system. Transportation: Limited. Patient reports to typically walk places but this is getting harder. Patient states to have one taxi voucher for [facility] [place]. Patient does believe that Elsa would be able to come and pick patient up from hospital if unable to go to rehab facility. Prescription coverage: Patient [employer] insurance is noted to have prescription coverage and patient now has Medicaid patient confirms to understand that Medicaid will be able to assist with patient medication coverage. Patient now has no prescription coverage concerns. PCP: no pcp. This social organization professor provided patient with list of primary care doctors that are local to [place] and in-network with patient insurance. Mental Health: Patient denies mental health issues or concerns. Patient denies suicidal thoughts, plans, intents or history of. Financial: Patient states to have social security care home as main income. 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 Substance Abuse/Use: Patient reports to smoke a pack of tobacco daily. Patient denies other substance abuse/use. Assessment: Collaborating with patient on above information. This social organization professor to collaborate with medical team on patient physical need as unsure what patient is physically able to do. This social organization professor spoke with nursing staff and Dr. Whiting. Dr. Whiting reports that patient is cleared for discharge today. Nursing staff reports that patient has been up with a cane with nursing staff. This social organization professor back to patient room. This social organization professor communicating that since patient has been up with a cane with nursing that this does not meet a skilled, patient voiced understanding and reports that Dr. Whiting has communicated to patient that patient will be discharged today. Patient initially states what am I going to do? This social organization professor assisting patient in problem solving. Patient states plan to send message to girlfriend about a ride home today and will reach out to social work if any further needs/questions. This social organization professor provided [facility], housing resources in [place], [place], [facility] and transportation options in [place] as patient reports plan/intent to eventually move to [place]. PLAN: Discharge to the community, waiting on girlfriend to message back in regards to transportation to [place]. Anju COYLE, DEVEN
[2023-01-26 11:38] LABS: T4 Free Direct 1.31 ng/dL (0.76-1.46)
--- NOTE | 2023-01-26 14:31 | CASEMGMT ---
Per therapy patient would benefit from a care home facility. SW met with patient. SW let patient know that SW can make a referral to a care home facility for rehab. However, patient's insurance may or may not approve him. SW explained if his insurance denies him he won't be able to go to a care home facility. SW provided patient with ?a list of care home facility providers including quality and resource use data and consistent with patient?s preferred geographic region, medical needs, and insurance network were provided from the [facility]. Patient asked which facility was the closest. SW told patient [facility] and [facility] are the closest facilities. Patient told SW to try those facilities first. Patient said if they don't work then he would like [facility] in [place]. SW sent referral to [facility] via [employer]. Mamta KRAMER
--- NOTE | 2023-01-26 15:06 | CHAPLAIN ---
Type of Pastoral Visit _x__ Initial Visit ___ Follow-up Visit ___ On-call Visit ___ General Patient Visit ___ Spiritual Assessment ___ Family Conference ___ Bereavement ___ Rapid Response ___ Code Blue ___ Other (describe below) Pastoral Care Referral From _x__ Patient ___ Family ___ Nurse ___ Physician ___ Director Of Planning ___ Channel Account Manager ___ Other (describe below) Sacrament/Intervention _x__ Active listening ___ Anointing ___ Jainism ___ Bereavement ___ Communion ___ Margoth exploration ___ _x__ Life review _x__ Prayer ___ Reconciliation ___ Sacrament of Sick _x__ Supportive presence ___ Wedding ___ Other (describe below) Pastoral Comments patient is looking for sugar for his coffee; assisted patient with his ooffee; pt states I am going to get kicked out to the curb here because he doesn't have a diagnosis to keep him; pt says that he is homeless and has no transportation; ; pt is referred to SW and CM; inquired about how pt is coping and handling his situation and what helps us through tough time; pt gives margoth filled answer but also does not seek further involvement in support and practical; presence and prayer welcomed
--- NOTE | 2023-01-26 15:26 | PN.HOSP_ITS ---
Reason for Visit Reason for Visit: Diagnoses Chronic obstructive pulmonary disease with (acute) exacerbation (01/25/23) Chest pain, unspecified (01/25/23) Objective Data Objective Data Vital Signs: Vital Signs Temp Pulse Resp BP Pulse Ox O2 Del Method 97.8 F 56 L 14 134/61 H 97 Room Air 01/26/23 10:06 01/26/23 10:06 01/26/23 10:06 01/26/23 10:06 01/26/23 10:06 01/26/23 10:06 Oxygen Delivery Method Room Air Weight: 167 lb 15.876 oz Body Mass Index (BMI) 21.5 Intake & Output: Intake and Output for Last 24 Hours 01/24/23 01/25/23 01/26/23 23:59 23:59 23:59 Intake Total 2021 Output Total 300 / 300 Balance 1721 Lab / Micro Data Result Diagrams: 01/26/23 06:07 01/26/23 06:07 Labs: Laboratory Results - last 24 hr 01/25/23 14:45: WBC 7.0, RBC 4.71, Hgb 14.7, Hct 43.5, MCV 92.4, MCH 31.2, MCHC 33.8, RDW Std Deviation 45.8 H, RDW Coeff of Dania 13.4, Plt Count 263, MPV 9.7, Immature Gran % (Auto) 0.100, Neut % (Auto) 63.0, Lymph % (Auto) 24.1, [place] % (Auto) 10.8 H, Eos % (Auto) 1.3, Baso % (Auto) 0.7, Absolute Neuts (auto) 4.4, Absolute Lymphs (auto) 1.69, Nucleated RBC % 0 01/25/23 14:45: Sodium 136, Potassium 3.3 L, Chloride 104, Carbon Dioxide 24.0, Anion Gap 8, BUN 22 H, Creatinine 1.01, Estim Creat Clear Calc 78.00, Est GFR (MDRD) Af Amer 94, Est GFR (MDRD) Non-Af 77, BUN/Creatinine Ratio 21.8 H, Glucose 114 H, Calcium 9.5, Troponin I High Sens 74 01/25/23 17:10: Troponin I High Sens 71 01/25/23 17:10: Magnesium 1.8 01/25/23 20:30: Troponin I High Sens 70 01/26/23 06:07: Sodium 137, Potassium 4.1, Chloride 109 H, Carbon Dioxide 20.0 L , Anion Gap 8, BUN 20 H, Creatinine 0.69 L, Estim Creat Clear Calc 73.03, Est GFR (MDRD) Af Amer 146, Est GFR (MDRD) Non-Af 121, BUN/Creatinine Ratio 29.1 H, Glucose 129 H, Calcium 9.0, Triglycerides 40, Cholesterol 133, LDL Cholesterol 72, VLDL Cholesterol 8, HDL Cholesterol 53, TSH 0.26 L 01/26/23 06:07: WBC 5.2, RBC 4.06 L, Hgb 12.5 L, Hct 38.3 L, MCV 94.3 H, MCH 30.8, MCHC 32.6, RDW Std Deviation 46.0 H, RDW Coeff of Dania 13.2, Plt Count 208, MPV 9.5, Immature Gran % (Auto) 0.400, Neut % (Auto) 85.0 H, Lymph % (Auto) 10.4 L, [place] % (Auto) 4.0, Eos % (Auto) 0.0, Baso % (Auto) 0.2, Absolute Neuts (auto) 4.4, Absolute Lymphs (auto) 0.54 L, Nucleated RBC % 0, Macrocytosis RARE 01/26/23 06:07: Free T4 1.31 Radiography Diagnostic Testing: Radiology Impression Chest X-Ray 01/25/23 15:09 IMPRESSION: Hyperinflation. Findings suggest mild scarring at the lung bases. Blunting of the right cusp and ankle. Electronically Signed: Wilmer Wilkinson MD at 15:26 EST , Physical Exam Narrative Patient does not have chest pain. He states sometimes he gets too much anxious and his chest hurts. Physical exam General: Alert, Oriented x3, Cooperative HEENT: Atraumatic, PERRLA, EOMI, Normocephalic Oral: Oral mucosa moist. No Gingival or Mucosal Lesions/ Ulcerations Neck: Supple, No JVD, Negative Carotid Bruits Chest wall/lungs: Funnel shapedl chest. Air entry diminished in bilateral lung bases. Bilateral expiratory rhonchi present. Wheezing has improved. Cardiovascular: Regular rate, Regular Rhythm, Normal S1, Normal S2, No murmurs Abdomen: Bowel Sounds Present, Soft, Non Tender, Non-Distended : No renal angle tenderness. No suprapubic tenderness. Extremities: No edema, Capillary Refill Less than 3 Seconds Skin: No rashes, No breakdown Musculoskeletal: Muscle strength, 4/5 at left hip and knee joints, 4+/5 at right hip and knee joints. Status post left hip replacement Spine: Surgical scar of lumbar spine from L1-L5. No acute tenderness. ROM restricted at lumbar spine. Neurological: Cranial nerves II-XII grossly intact, DTR 2+/4, decreased gross sensation in the left lower extremity as compared to right Psych/Mental Status: Flat affect. Assessment & Plan Assessment/Plan (1) Chest pain: (2) COPD exacerbation: PLAN: Plan This 72-year-old gentleman is being admitted for acute chest pain and shortness of breath sudden onset and nonadherence to his medication. 1. Atypical chest pain shortness of breath possible unstable angina: Patient is being admitted in PCU. 2 serial Hyser troponin and EKG does not show change. Third troponin after 6 hours of first 1. Pharmacological nuclear stress test tomorrow morning. Patient had cardiac cath on 08/26/2022 reported ELVIS in mid to distal LAD. Patient not taking dual antiplatelet agent and other cardiac medications as he is not able to afford it. Patient also had an echo at that time reported LV mildly dilated, systolic function normal, normal LV diastolic function. EF 60%. RV normal in size and systolic function. Patient did not had cardiac rehab. MELINA risk score 4. 3/7:Serial troponin enzymes negative. Hypokalemia resolved. Patient had nuclear cardiac stress test which did not show stress-induced ischemia. Prescriptions given for aspirin, Plavix, metoprolol, HCTZ and atorvastatin. Fasting profile LDL 72 HDL 53. TSH 0.26. Free T4 1.31. Thyroid function test suggestive of subclinical hyperthyroidism. Follow with cardiology clinic Dr. Dunn in 1 month. Patient was supposed to be discharged but PT states he did not do great on walking. Overall decision was made for SNF. Pre-CERT is sent. 2. Single-vessel coronary artery disease: As mentioned above. Patient has appointment with cardiology in [place] but does not want to go there. [place] social welfare research worker following. Options given to follow-up cardiology in [place] 3. Lumbar spinal stenosis, possible spondylolisthesis, degenerative disc disease with lumbar radiculopathy status post lumbar decompression surgery: Patient exact diagnosis and procedure not clear as it was done in [facility] about a month ago. Patient did not had rehab after that. PT and OT ordered. Patient is states weakness of the left leg and numbness tingling improved after surgery. Patient still uses cane. 4. COPD/emphysema/asthmatic bronchitis: Patient has mild COPD exacerbation. Started on prednisone 40 mg daily, DuoNeb, incentive spirometry and Pep. Patient given prescription for albuterol inhaler, tapering dose of prednisone, Mucinex DM and advised to continue incentive spirometry and Pep. Follow-up with Dr. Tao, pulmonary clinic in 1 month. 5. Hypertension: Blood pressure is in normal range. Blood pressure is much better. 6. Chronic mild protein calorie malnutrition: Patient has mild atrophy of muscl es of thigh and calf, loss of subcutaneous fat. Director Of Plant Operations consult. VT prophylaxis moderate risk: Lovenox 40 mg subcu daily. Discharge is canceled. Please cancel the billing charge of discharge note today. Charges/Coding Visit Charges Inpatient E&M: 33306 Subs Hosp L2
--- NOTE | 2023-01-26 17:12 | CASEMGMT ---
YARITZA CM in to complete BOLAND form with patient. RN CHUCK explained BOLAND form to patient, patient voiced understanding. Patient signed BOLAND form and filed in chart. Patient provided with copy of signed BOLAND form. Patient had no further questions or concerns at this time.
--- NOTE | 2023-01-26 19:00 | EKG12_ITS ---
Test Reason : cp admit Blood Pressure : / mmHG Vent. Rate : 071 BPM Atrial Rate : 071 BPM P-R Int : 158 ms QRS Dur : 084 ms QT Int : 426 ms P-R-T Axes : 076 044 048 degrees QTc Int : 462 ms Normal sinus rhythm Normal ECG Confirmed by ISAAC JACKSON, TEE ([id number]), sound editor ELIZBAETH CHRISTENSEN ([id number]) on 01/27/2023 10:28:52 AM Referred By: Henok Confirmed By:TEE GRAY MD
[2023-01-26] MEDS: traZODone 50 MG Tablet 25 MG PO (22:27)
[2023-01-26] MEDS: Atorvastatin Calcium 40 MG Tablet PO (22:28)
[2023-01-26] MEDS: 0.9% Saline Lock 10 ML Syringe IV (22:30)
[2023-01-27] VITALS (12 sets, daily range): BP systolic 142–163; BP diastolic 61–87; PULSE 48–57; RESP 15–22; TEMP 36.6–37; O2SAT 93–97
[2023-01-27] MEDS: oxyCODONE 5 MG Tablet PO ×4 (05:01→22:34)
[2023-01-27] MEDS: tiZANidine HCl 2 MG Tablet 6 MG PO ×3 (05:03→22:38)
--- NOTE | 2023-01-27 05:06 | EKG12_ITS ---
Test Reason : TIMED EKG Blood Pressure : / mmHG Vent. Rate : 056 BPM Atrial Rate : 056 BPM P-R Int : 148 ms QRS Dur : 088 ms QT Int : 436 ms P-R-T Axes : 058 048 047 degrees QTc Int : 420 ms Sinus bradycardia Otherwise normal ECG Confirmed by ISAAC JACKSON, TEE ([id number]), legal editor ELIZABETH CHRISTENSEN ([id number]) on 01/28/2023 9:09:42 AM Referred By: Confirmed By:TEE GRAY MD
[2023-01-27] MEDS: Ipratropium/Albuterol Sulfate 3 ML AMPUL.NEB INHALATION ×3 (05:30→19:22)
[2023-01-27 05:45] LABS: Absolute Lymphocyte Count 1.28 X10^3/uL (0.83-4.51); Absolute Neutrophil Count 3.7 X10^3/uL (2.0-7.7); Basophil# 0.02 X10^3/uL; Basophil% 0.4 % (0-1); Eosinophil# 0.03 X10^3/uL; Eosinophils% 0.5 % (0-5); Hematocrit 38.6 % (40-54); Hemoglobin 12.5 g/dL (13.0-16.5); Lymphocyte # 1.28 X10^3/ul (0.83-4.51); Mean Corp Hgb Conc 32.4 g/dL (32-36); Mean Corpuscular Hgb 30.5 pg (27.0-32.0); Mean Corpuscular Volume 94.1 fL (80-94); Mean Platelet Vol. 9.4 fl (6.2-12.0); Monocyte# 0.47 X10^3/uL; Monocyte% 8.5 % (0-10); NRBC Flagged by Analyzer 0 % (0-5); Neutrophil # 3.74 X10^3/uL (2.7-7.7); Neutrophil % 67.2 % (47-70); Platelet Count 189 K/mm3 (150-450); RBC Distribution Width CV 13.3 % (11.6-14.6); RBC Distribution Width SD 45.8 fl (35.1-43.9); White Blood Count 5.6 K/mm3 (4.4-11.0)
[2023-01-27 06:10] LABS: Anion Gap 7 (5-15); BUN 19 mg/dL (7-18); BUN/Creat Ratio 24.5 RATIO (10-20); Calcium,Total 8.7 mg/dL (8.5-10.1); Chloride 107 mmol/L (98-107); Creatinine, Serum 0.77 mg/dL (0.70-1.30); EST Glomerular Filtration Rate 105 mL/min (>60); Est Glom Filt Rate - Afr Amer 127 mL/min (>60); Estimated Creatinine Clearance 73.03 ml/min; Glucose 132 mg/dL (74-106); Potassium 3.5 mmol/L (3.5-5.1); Sodium Level 139 mmol/L (136-145)
[2023-01-27 06:18] LABS: Magnesium 1.9 mg/dL (1.6-2.6)
--- NOTE | 2023-01-27 08:22 | CASEMGMT ---
SW received a message from [facility] that they can accept patient and pre-cert will be started. SW will notify patient. Plan: d/c to [facility] pending insurance approval Mamta KRAMER
[2023-01-27] MEDS: predniSONE 20 MG Tablet 40 MG PO (08:32)
[2023-01-27] MEDS: Aspirin E.C. 81 MG Tablet PO (08:33)
--- NOTE | 2023-01-27 09:27 | CASEMGMT ---
Addendum entered by Mamta Ruiz 01/27/23 09:35: [facility] responded that they are out of network. SW went to go back to patient's room, but he was receiving patient care. Mamta KRAMER Original Note: SW let patient know that [facility] has accepted him and they submitted everything to insurance. SW explained he will wait here at [facility] until his insurance gives an answer. Patient said he wants to go to [facility] in [place] now. SW canceled referral with [facility] and sent referral to [facility] in [place] via [facility]. SW called, but admissions was in a morning meeting. SW will call back in a bit. Mamta KRAMER
--- NOTE | 2023-01-27 09:37 | CASEMGMT ---
POPEYE notified patient [facility] does not take his insurance. Patient said he will go to the local one that accepted him. POPEYE asked [facility] to please start the pre-cert again. Mamta KRAMER
--- NOTE | 2023-01-27 10:03 | CASEMGMT ---
Patient then called SW back to his room. Patient said he would like to go to a facility in [place]. SW told patient that the pre-cert has been started for the second time. SW explained that every time it is stopped it is delaying his discharge. SW explained to patient he was ready for discharge yesterday. SW reminded patient SW asked him if he wanted a SNF list for [facility] or [facility] and he chose [facility]. SW explained that if his insurance approves him and he still wants to go to some place in [place], [facility] can asssist him with this. Plan: d/c to [facility] pending insurance approval. Mamta KRAMER
[2023-01-27] MEDS: Pantoprazole Sodium 40 MG Tablet PO (10:19)
[2023-01-27] MEDS: 0.9% Saline Lock 10 ML Syringe IV ×2 (10:19→20:52)
[2023-01-27] MEDS: hydroCHLOROthiazide 12.5mg 12.5 MG PO (10:20)
[2023-01-27] MEDS: Clopidogrel Bisulfate 75 MG Tablet PO (10:20)
[2023-01-27] MEDS: Enoxaparin 40 MG/0.4 ML Syringe SC (10:20)
[2023-01-27] MEDS: guaiFENesin 1,200 MG Tablet 1200 MG PO ×2 (10:20→22:33)
[2023-01-27] MEDS: Gabapentin 300 MG Capsule PO ×2 (10:23→22:34)
--- NOTE | 2023-01-27 11:28 | PHA.DC.MR ---
Pharmacy Service has performed discharge medication reconciliation for this patient. The patient's discharge medication list was reviewed for discrepancies and discrepancies were resolved. Home Medications gabapentin 300 mg tablet 300 mg PO BID nerve pain 01/25/23 tizanidine 6 mg capsule 4 mg PO Q6H PRN PRN Muscle Spasm 01/25/23 albuterol sulfate 90 mcg/actuation aerosol inhaler 2 puff inhalation Q6H PRN shortness of breath or wheezing #8.5 grams 01/26/23 aspirin 81 mg tablet,delayed release 81 mg PO BREAKFAST #30 tabs 01/26/23 atorvastatin 40 mg tablet 40 mg PO QHS #30 tabs 01/26/23 clopidogrel 75 mg tablet 75 mg PO DAILY #30 tabs 01/26/23 dextromethorphan-guaifenesin ER 60 mg-1,200 mg tab,extend release,12hr (Mucinex DM) 1 tab PO Q12H 7 days #14 tabs 01/26/23 hydrochlorothiazide 25 mg tablet 12.5 mg PO DAILY bp #30 tabs 01/26/23 pantoprazole 40 mg tablet,delayed release 40 mg PO DAILY #30 tabs 01/26/23 prednisone 10 mg tablets in a dose pack See Taper PO DAILY #30 tabs 01/26/23 metoprolol succinate 25 mg tablet,extended release 24 hr 25 mg PO DAILY #30 tabs 01/27/23
[2023-01-27] MEDS: Acetaminophen 325 MG Tablet 650 MG PO (11:47)
--- NOTE | 2023-01-27 12:58 | PN.HOSP_ITS ---
Reason for Visit Reason for Visit: Diagnoses Chronic obstructive pulmonary disease with (acute) exacerbation (01/25/23) Chest pain, unspecified (01/25/23) Subjective Subjective Follow-up for chest pain. Objective Data Objective Data Vital Signs: Vital Signs Temp Pulse Resp BP Pulse Ox O2 Del Method 98.0 F 56 L 18 147/83 H 97 Room Air 01/27/23 10:01 01/27/23 10:20 01/27/23 10:01 01/27/23 10:20 01/27/23 10:01 01/27/23 10:01 Oxygen Delivery Method Room Air Weight: 167 lb 15.876 oz Body Mass Index (BMI) 21.5 Intake & Output: Intake and Output for Last 24 Hours 01/25/23 01/26/23 01/27/23 23:59 23:59 23:59 Intake Total 3082 / 3082 Output Total 1400 / 1400 1000 / 1000 Balance 1682 / 1682 -1000 / -1000 Lab / Micro Data Result Diagrams: 01/27/23 05:37 01/27/23 05:37 Labs: Laboratory Results - last 24 hr 01/27/23 05:37: WBC 5.6, RBC 4.10 L, Hgb 12.5 L, Hct 38.6 L, MCV 94.1 H, MCH 30.5, MCHC 32.4, RDW Std Deviation 45.8 H, RDW Coeff of Dania 13.3, Plt Count 189, MPV 9.4, Immature Gran % (Auto) 0.400, Neut % (Auto) 67.2, Lymph % (Auto) 23.0, [place] % (Auto) 8.5, Eos % (Auto) 0.5, Baso % (Auto) 0.4, Absolute Neuts (auto) 3.7, Absolute Lymphs (auto) 1.28, Nucleated RBC % 0 01/27/23 05:37: Sodium 139, Potassium 3.5, Chloride 107, Carbon Dioxide 25.0, Anion Gap 7, BUN 19 H, Creatinine 0.77, Estim Creat Clear Calc 73.03, Est GFR (MDRD) Af Amer 127, Est GFR (MDRD) Non-Af 105, BUN/Creatinine Ratio 24.5 H, Glucose 132 H, Calcium 8.7 01/27/23 05:37: Magnesium 1.9 Physical Exam Narrative Patient is still intermittently complaining of chest pain from right side to left side. He states sometimes he gets too much anxious and his chest hurts. Physical exam General: Alert, Oriented x3, Cooperative HEENT: Atraumatic, PERRLA, EOMI, Normocephalic Oral: Oral mucosa moist. No Gingival or Mucosal Lesions/ Ulcerations Neck: Supple, No JVD, Negative Carotid Bruits Chest wall/lungs: Funnel shaped chest. Air entry diminished in bilateral lung bases. Bilateral expiratory rhonchi present. Wheezing has improved. Cardiovascular: Regular rate, Regular Rhythm, Normal S1, Normal S2, No murmurs Abdomen: Bowel Sounds Present, Soft, Non Tender, Non-Distended : No renal angle tenderness. No suprapubic tenderness. Extremities: No edema, Capillary Refill Less than 3 Seconds Skin: No rashes, No breakdown Musculoskeletal: Muscle strength, 4/5 at left hip and knee joints, 4+/5 at right hip and knee joints. Status post left hip replacement Spine: Surgical scar of lumbar spine from L1-L5. No acute tenderness. ROM restricted at lumbar spine. Neurological: Cranial nerves II-XII grossly intact, DTR 2+/4, decreased gross sensation in the left lower extremity as compared to right Psych/Mental Status: Flat affect. Assessment & Plan Assessment/Plan (1) Chest pain: (2) COPD exacerbation: PLAN: Plan This 72-year-old gentleman is being admitted for acute chest pain and shortness of breath sudden onset and nonadherence to his medication. 1. Atypical chest pain shortness of breath possible unstable angina: Patient is being admitted in PCU. 2 serial Hyser troponin and EKG does not show change. Third troponin after 6 hours of first 1. Pharmacological nuclear stress test tomorrow morning. Patient had cardiac cath on 08/26/2022 reported ELVIS in mid to distal LAD. Patient not taking dual antiplatelet agent and other cardiac medications as he is not able to afford it. Patient also had an echo at that time reported LV mildly dilated, systolic function normal, normal LV diastolic function. EF 60%. RV normal in size and systolic function. Patient did not had cardiac rehab. MELINA risk score 4. 3/7:Serial troponin enzymes negative. Hypokalemia resolved. Patient had nuclear cardiac stress test which did not show stress-induced ischemia. Prescriptions given for aspirin, Plavix, metoprolol, HCTZ and atorvastatin. Fasting profile LDL 72 HDL 53. TSH 0.26. Free T4 1.31. Thyroid function test suggestive of subclinical hyperthyroidism. Follow with cardiology clinic Dr. Dunn in 1 month. Patient was supposed to be discharged but PT states he did not do great on walking. Overall decision was made for SNF. Pre-CERT is sent. 01/27: Patient is medically stable for discharge but pending pre-CERT. Advised him to follow-up with cardiology clinic and pulmonary clinic. 2. Single-vessel coronary artery disease: As mentioned above. Patient has appointment with cardiology in [place] but does not want to go there. [place] social media specialist following. Options given to follow-up cardiology in [place] 3. Lumbar spinal stenosis, possible spondylolisthesis, degenerative disc disease with lumbar radiculopathy status post lumbar decompression surgery: Patient exact diagnosis and procedure not clear as it was done in [facility] about a month ago. Patient did not had rehab after that. PT and OT ordered. Patient is states weakness of the left leg and numbness tingling improved after surgery. Patient still uses cane. 4. COPD/emphysema/asthmatic bronchitis: Patient has mild COPD exacerbation. Started on prednisone 40 mg daily, DuoNeb, incentive spirometry and Pep. Patient given prescription for albuterol inhaler, tapering dose of prednisone, Mucinex DM and advised to continue incentive spirometry and Pep. Follow-up with Dr. Tao, pulmonary clinic in 1 month. 5. Hypertension: Blood pressure is in normal range. Blood pressure is much better. 6. Chronic mild protein calorie malnutrition: Patient has mild atrophy of muscles of thigh and calf, loss of subcutaneous fat. Sports Athletic Trainer consult. VT prophylaxis moderate risk: Lovenox 40 mg subcu daily. Charges/Coding Visit Charges Inpatient E&M: 54450 Subs Hosp L2
[2023-01-27] MEDS: traZODone 50 MG Tablet 25 MG PO (22:33)
[2023-01-27] MEDS: Atorvastatin Calcium 40 MG Tablet PO (22:33)
[2023-01-28] VITALS (13 sets, daily range): BP systolic 105–158; BP diastolic 63–87; PULSE 47–63; RESP 15–24; TEMP 36.3–36.7; O2SAT 93–97
[2023-01-28] MEDS: tiZANidine HCl 2 MG Tablet 6 MG PO ×3 (07:54→22:27)
[2023-01-28] MEDS: Acetaminophen 325 MG Tablet 650 MG PO ×3 (07:54→22:24)
[2023-01-28] MEDS: oxyCODONE 5 MG Tablet PO ×4 (07:54→22:24)
[2023-01-28] MEDS: predniSONE 20 MG Tablet 40 MG PO (07:56)
[2023-01-28] MEDS: Aspirin E.C. 81 MG Tablet PO (07:56)
[2023-01-28] MEDS: Ipratropium/Albuterol Sulfate 3 ML AMPUL.NEB INHALATION ×4 (07:59→19:13)
[2023-01-28] MEDS: Clopidogrel Bisulfate 75 MG Tablet PO (09:27)
[2023-01-28] MEDS: 0.9% Saline Lock 10 ML Syringe IV (09:27)
[2023-01-28] MEDS: hydroCHLOROthiazide 12.5mg 12.5 MG PO (09:27)
[2023-01-28] MEDS: Enoxaparin 40 MG/0.4 ML Syringe SC (09:27)
[2023-01-28] MEDS: Pantoprazole Sodium 40 MG Tablet PO (09:27)
[2023-01-28] MEDS: guaiFENesin 1,200 MG Tablet 1200 MG PO ×2 (09:27→22:25)
[2023-01-28] MEDS: Gabapentin 300 MG Capsule PO ×2 (09:30→22:25)
--- NOTE | 2023-01-28 12:37 | PCM.PN.HOSP ---
Reason for Visit Reason for Visit: Diagnoses Chronic obstructive pulmonary disease with (acute) exacerbation (01/25/23) Chest pain, unspecified (01/25/23) Subjective Subjective Follow-up for shortness of breath and chest pain, chest pain is not cardiac type. Objective Data Objective Data Vital Signs: Vital Signs Temp Pulse Resp BP Pulse Ox O2 Del Method 97.4 F L 55 L 20 H 105/63 93 Room Air 01/28/23 09:00 01/28/23 12:34 01/28/23 12:34 01/28/23 09:28 01/28/23 09:15 01/28/23 09:00 Oxygen Delivery Method Room Air Weight: 167 lb 15.876 oz Body Mass Index (BMI) 21.5 Intake & Output: Intake and Output for Last 24 Hours 01/26/23 01/27/23 01/28/23 23:59 23:59 23:59 Intake Total 3082 / 3082 960 / 960 Output Total 1400 / 1400 2285 / 2285 650 / 650 Balance 1682 / 1682 -1325 / -1325 -650 / -650 Lab / Micro Data Result Diagrams: 01/27/23 05:37 01/27/23 05:37 Physical Exam Narrative Patient is states he was very short of breath and required DuoNeb in the morning. He was not able to breathe but he feels better now still intermittently complaining of chest pain/17, noncardiac type. Physical exam General: Alert, Oriented x3, Cooperative HEENT: Atraumatic, PERRLA, EOMI, Normocephalic Oral: Oral mucosa moist. No Gingival or Mucosal Lesions/ Ulcerations Neck: Supple, No JVD, Negative Carotid Bruits Chest wall/lungs: Funnel shaped chest. Air entry diminished in bilateral lung bases. Bilateral expiratory rhonchi present. No wheezing. Cardiovascular: Regular rate, Regular Rhythm, Normal S1, Normal S2, No murmurs Abdomen: Bowel Sounds Present, Soft, Non Tender, Non-Distended : No renal angle tenderness. No suprapubic tenderness. Extremities: No edema, Capillary Refill Less than 3 Seconds Skin: No rashes, No breakdown Musculoskeletal: Muscle strength, 4/5 at left hip and knee joints, 4+/5 at right hip and knee joints. Status post left hip replacement Spine: Surgical scar of lumbar spine from L1-L5. No acute tenderness. ROM restricted at lumbar spine. Neurological: Cranial nerves II-XII grossly intact, DTR 2+/4, decreased gross sensation in the left lower extremity as compared to right Psych/Mental Status: Flat affect. Assessment & Plan Assessment/Plan (1) Chest pain: (2) COPD exacerbation: PLAN: Plan This 72-year-old gentleman is being admitted for acute chest pain and shortness of breath sudden onset and nonadherence to his medication. 1. Atypical chest pain shortness of breath possible unstable angina: Patient is being admitted in PCU. 2 serial Hyser troponin and EKG does not show change. Third troponin after 6 hours of first 1. Pharmacological nuclear stress test tomorrow morning. Patient had cardiac cath on 08/26/2022 reported ELVIS in mid to distal LAD. Patient not taking dual antiplatelet agent and other cardiac medications as he is not able to afford it. Patient also had an echo at that time reported LV mildly dilated, systolic function normal, normal LV diastolic function. EF 60%. RV normal in size and systolic function. Patient did not had cardiac rehab. MELINA risk score 4. 3/7:Serial troponin enzymes negative. Hypokalemia resolved. Patient had nuclear cardiac stress test which did not show stress-induced ischemia. Prescriptions given for aspirin, Plavix, metoprolol, HCTZ and atorvastatin. Fasting profile LDL 72 HDL 53. TSH 0.26. Free T4 1.31. Thyroid function test suggestive of subclinical hyperthyroidism. Follow with cardiology clinic Dr. Dunn in 1 month. Patient was supposed to be discharged but PT states he did not do great on walking. Overall decision was made for SNF. Pre-CERT is sent. 01/27: Patient is medically stable for discharge but pending pre-CERT. Advised him to follow-up with cardiology clinic and pulmonary clinic. 01/28: Continue cardiac medications. 2. Single-vessel coronary artery disease: As mentioned above. Patient has appointment with cardiology in [place] but does not want to go there. [place] social service agency director following. Options given to follow-up cardiology in [place] 3. Lumbar spinal stenosis, possible spondylolisthesis, degenerative disc disease with lumbar radiculopathy status post lumbar decompression surgery: Patient exact diagnosis and procedure not clear as it was done in [facility] about a month ago. Patient did not had rehab after that. PT and OT ordered. Patient is states weakness of the left leg and numbness tingling improved after surgery. Patient still uses cane. 4. COPD/emphysema/asthmatic bronchitis: Patient has mild COPD exacerbation. Started on prednisone 40 mg daily, DuoNeb, incentive spirometry and Pep. Patient given prescription for albuterol inhaler, tapering dose of prednisone, Mucinex DM and advised to continue incentive spirometry and Pep. Follow-up with Dr. Tao, pulmonary clinic in 1 month. 01/28: Continue bronchodilator. 5. Hypertension: Blood pressure is in normal range. Blood pressure is much better. 6. Chronic mild protein calorie malnutrition: Patient has mild atrophy of muscles of thigh and calf, loss of subcutaneous fat. Animal Ride Manager consult. VT prophylaxis moderate risk: Lovenox 40 mg subcu daily. Charges/Coding Visit Charges Inpatient E&M: 78750 Subs Hosp L2
--- NOTE | 2023-01-28 14:38 | CASEMGMT ---
POPEYE called Isabel at [facility] and asked if she has heard anything from patient's insurance. Isabel said she checked and it is still pending. POPEYE will send updated information. Mamta KRAMER
[2023-01-28] MEDS: Atorvastatin Calcium 40 MG Tablet PO (22:25)
[2023-01-28] MEDS: traZODone 50 MG Tablet 25 MG PO (22:25)
[2023-01-28] MEDS: Metoprolol Tartrate 50 MG Tablet PO (22:26)
[2023-01-29] MEDS: oxyCODONE 5 MG Tablet PO (06:42)
[2023-01-29] MEDS: tiZANidine HCl 2 MG Tablet 6 MG PO (06:42)
[2023-01-29] MEDS: Acetaminophen 325 MG Tablet 650 MG PO (06:42)
[2023-01-29 06:54] VITALS: BP 158/92; PULSE 55; RESP 16; TEMP 36.6; O2SAT 100
[2023-01-29 07:07] VITALS: PULSE 70; RESP 20
[2023-01-29] MEDS: Ipratropium/Albuterol Sulfate 3 ML AMPUL.NEB INHALATION (07:07)
[2023-01-29 08:31] VITALS: BP 130/72; PULSE 55; RESP 18; TEMP 36.5; O2SAT 95
[2023-01-29 08:33] VITALS: PULSE 55
[2023-01-29] MEDS: Aspirin E.C. 81 MG Tablet PO (08:36)
[2023-01-29] MEDS: guaiFENesin 1,200 MG Tablet 1200 MG PO (08:36)
[2023-01-29] MEDS: Pantoprazole Sodium 40 MG Tablet PO (08:36)
[2023-01-29] MEDS: hydroCHLOROthiazide 12.5mg 12.5 MG PO (08:37)
[2023-01-29] MEDS: Gabapentin 300 MG Capsule PO (08:37)
[2023-01-29] MEDS: Clopidogrel Bisulfate 75 MG Tablet PO (08:37)
[2023-01-29] MEDS: predniSONE 20 MG Tablet 40 MG PO (08:37)
[2023-01-29] MEDS: Enoxaparin 40 MG/0.4 ML Syringe SC (08:37)
--- NOTE | 2023-01-29 09:01 | PCM.TXEXTCAR ---
Diet Diet Order/Speech Therapy: 01/26/23 11:23 Diet: Cardiac - Heart Healthy Is pt able to select menu?: Yes Routine Orders/Code Status Suppository Type: Dulcolax 10mg Suppository Frequency: Daily PRN Therapies Weight Bearing: Weight bearing as tolerated Extremity Affected:: Bilateral Lower Physical Therapy: Eval and Treat Occupational Therapy: Eval and Treat Speech Therapy: Eval and Treat Problem/Diagnosis (1) Chest pain: Status: Acute Code(s): R07.9 - Chest pain, unspecified (2) COPD exacerbation: Status: Chronic Code(s): J44.1 - Chronic obstructive pulmonary disease with (acute) exacerbation Plan This 72-year-old gentleman is being admitted for acute chest pain and shortness of breath sudden onset and nonadherence to his medication. 1. Atypical chest pain shortness of breath possible unstable angina: Patient is being admitted in PCU. 2 serial Hyser troponin and EKG does not show change. Third troponin after 6 hours of first 1. Pharmacological nuclear stress test tomorrow morning. Patient had cardiac cath on 08/26/2022 reported ELVIS in mid to distal LAD. Patient not taking dual antiplatelet agent and other cardiac medications as he is not able to afford it. Patient also had an echo at that time reported LV mildly dilated, systolic function normal, normal LV diastolic function. EF 60%. RV normal in size and systolic function. Patient did not had cardiac rehab. MELINA risk score 4. 3/7:Serial troponin enzymes negative. Hypokalemia resolved. Patient had nuclear cardiac stress test which did not show stress-induced ischemia. Prescriptions given for aspirin, Plavix, metoprolol, HCTZ and atorvastatin. Fasting profile LDL 72 HDL 53. TSH 0.26. Free T4 1.31. Thyroid function test suggestive of subclinical hyperthyroidism. Follow with cardiology clinic Dr. Dunn in 1 month. Patient was supposed to be discharged but PT states he did not do great on walking. Overall decision was made for SNF. Pre-CERT is sent. 2. Single-vessel coronary artery disease: As mentioned above. Patient has appointment with cardiology in [place] but does not want to go there. [place] social services analyst following. Options given to follow-up cardiology in [place] 3. Lumbar spinal stenosis, possible spondylolisthesis, degenerative disc disease with lumbar radiculopathy status post lumbar decompression surgery: Patient exact diagnosis and procedure not clear as it was done in [facility] about a month ago. Patient did not had rehab after that. PT and OT ordered. Patient is states weakness of the left leg and numbness tingling improved after surgery. Patient still uses cane. 4. COPD/emphysema/asthmatic bronchitis: Patient has mild COPD exacerbation. Started on prednisone 40 mg daily, DuoNeb, incentive spirometry and Pep. Patient given prescription for albuterol inhaler, tapering dose of prednisone, Mucinex DM and advised to continue incentive spirometry and Pep. Follow-up with Dr. Tao, pulmonary clinic in 1 month. 5. Hypertension: Blood pressure is in normal range. Blood pressure is much better. 6. Chronic mild protein calorie malnutrition: Patient has mild atrophy of muscles of thigh and calf, loss of subcutaneous fat. Associate Director Of Sales consult. VT prophylaxis moderate risk: Lovenox 40 mg subcu daily. Discharge is canceled. Please cancel the billing charge of discharge note today. Allergies/Procedures Done in Hospital Allergies ketorolac [From Toradol] Allergy (Verified 01/25/23 14:30) Other tetracycline Allergy (Verified 01/25/23 14:30) Hives Type of Care/Length of Stay Estimated LOS: Convalescent Care Less Than 30 days Type of Care Needed: Skilled Rehab Potential: Good Prognosis: Good Additional Orders/Day of Discharge Day of Discharge: 01/29/23 Discharge Plan Admission Admit Date/Time: 01/25/23 18:07 Primary Reason for Your Visit: atypical chest pain, copd Attending Provider: Juan F Whiting Primary Care Provider: Care Physician,No Primary Discharge Orders/Prescriptions Prescriptions: New atorvastatin 40 mg Tablet 40 mg PO QHS Qty: 30 2RF clopidogrel 75 mg Tablet 75 mg PO DAILY Qty: 30 2RF aspirin 81 mg Tablet,Delayed Release (Dr/Ec) 81 mg PO BREAKFAST Qty: 30 3RF pantoprazole 40 mg Tablet,Delayed Release (Dr/Ec) 40 mg PO DAILY Qty: 30 0RF prednisone 10 mg tablets,dose pack See Taper PO DAILY Qty: 30 0RF Taper: Prednisone Taper 40 mg WITH BREAKFAST for 3 Days and 0 Hour 30 mg WITH BREAKFAST for 3 Days and 0 Hour 20 mg WITH BREAKFAST for 3 Days and 0 Hour 10 mg WITH BREAKFAST for 3 Days and 0 Hour Rx Instructions: 40 mg with breakfast for 3 Days; 30 mg for 3 Days; 20 mg for 3 Days; 10 mg for 3 Days albuterol sulfate 90 mcg/actuation HFA aerosol inhaler 2 puff inhalation Q6H PRN (Reason: shortness of breath or wheezing) Qty: 8.5 0RF dextromethorphan-guaifenesin [Mucinex DM] 60-1,200 mg tablet extended release 12 hr 1 tab PO Q12H 7 Days Qty: 14 0RF metoprolol succinate 25 mg tablet extended release 24 hr 25 mg PO DAILY Qty: 30 2RF Rx Instructions: Hold for heart less than 60 or systolic blood pressure less than 100 mmHg. Continued gabapentin 300 mg Tablet 300 mg PO BID tizanidine 6 mg Capsule 4 mg PO Q6H PRN PRN (Reason: Muscle Spasm) Changed hydrochlorothiazide 25 mg Tablet 12.5 mg PO DAILY Qty: 30 1RF Discontinued metoprolol tartrate 50 mg Tablet 50 mg PO BID Referrals / Follow Up: July Dunn MD [Med Staff - Active Staff] - 02/16/23 9:45 am Gerald Tao DO [Med Staff - Active Staff] - Within 1 Month (for PFT, Chr smoker) Care Physician,No Primary [Primary Care Provider] - [facility] Doctor,Out of [Non-Staff] - Disposition Disposition (needs filled in before D/C Order can be placed): Home, Self Care
--- NOTE | 2023-01-29 09:41 | CASEMGMT ---
Addendum entered by Mamta Ruiz 01/29/23 10:09: P[facility]YE called [facility] and arranged for patient to get picked up at 1030 via wheelchair van. SW sent orders, d/c meds, and poultry picker time to [facility] via [facility]. POPEYE also notified RN, real estate legal secretary, and patient. Plan: d/c to [facility] under skilled level of care on a PASRR as patient was observation status in the hospital. [facility] transported via wheelchair van. Mamta KRAMER Original Note: Patient was approved for [facility]. SW completed PASRR as patient is observation status in the hospital. SW notified physician and patient. SW also gave patient information on help with prescriptions through Social Security. POPEYE told patient he does not have straight Medicaid. His Medicaid only helps pay his premiums. It will not cover co-pays or medications. Await orders. Mamta KRAMER
--- NOTE | 2023-01-29 10:52 | NURSING ---
Report called to YARITZA Llanos at [facility].
--- NOTE | 2023-01-29 11:43 | PCM.DC.SUM ---
Providers Date of Admission: 01/25/23 Date of Discharge: 01/29/23 Primary Care Physician: No Primary Care Phys Reason For Visit: ATYPICAL CHEST PAIN, COPD EXA Diagnosis Discharge Diagnosis (1) Chest pain: Status: Acute Code(s): R07.9 - Chest pain, unspecified (2) COPD exacerbation: Status: Chronic Code(s): J44.1 - Chronic obstructive pulmonary disease with (acute) exacerbation Plan This 72-year-old gentleman is being admitted for acute chest pain and shortness of breath sudden onset and nonadherence to his medication. 1. Atypical chest pain shortness of breath possible unstable angina: Patient is being admitted in PCU. 2 serial Hyser troponin and EKG does not show change. Third troponin after 6 hours of first 1. Pharmacological nuclear stress test tomorrow morning. Patient had cardiac cath on 08/26/2022 reported ELVIS in mid to distal LAD. Patient not taking dual antiplatelet agent and other cardiac medications as he is not able to afford it. Patient also had an echo at that time reported LV mildly dilated, systolic function normal, normal LV diastolic function. EF 60%. RV normal in size and systolic function. Patient did not had cardiac rehab. MELINA risk score 4. 3/7:Serial troponin enzymes negative. Hypokalemia resolved. Patient had nuclear cardiac stress test which did not show stress-induced ischemia. Prescriptions given for aspirin, Plavix, metoprolol, HCTZ and atorvastatin. Fasting profile LDL 72 HDL 53. TSH 0.26. Free T4 1.31. Thyroid function test suggestive of subclinical hyperthyroidism. Follow with cardiology clinic Dr. Dunn in 1 month. Patient was supposed to be discharged but PT states he did not do great on walking. Overall decision was made for SNF. 01/29: Patient has intermittent chest pain not suggestive of ACS. ACS earlier ruled out. Probably musculoskeletal pain/pleuritic pain, noncardiac cause. 2. Single-vessel coronary artery disease: As mentioned above. Patient has appointment with cardiology in [place] but does not want to go there. [place] social media editor following. Options given to follow-up cardiology in [place] 3. Lumbar spinal stenosis, possible spondylolisthesis, degenerative disc disease with lumbar radiculopathy status post lumbar decompression surgery: Patient exact diagnosis and procedure not clear as it was done in [facility] about a month ago. Patient did not had rehab after that. PT and OT ordered. Patient is states weakness of the left leg and numbness tingling improved after surgery. Patient still uses cane. 4. COPD/emphysema/asthmatic bronchitis: Patient has mild COPD exacerbation. Started on prednisone 40 mg daily, DuoNeb, incentive spirometry and Pep. Patient given prescription for albuterol inhaler, tapering dose of prednisone, Mucinex DM and advised to continue incentive spirometry and Pep. Follow-up with Dr. Tao, pulmonary clinic in 1 month. 5. Hypertension: Blood pressure is in normal range. Blood pressure is much better. 6. Chronic mild protein calorie malnutrition: Patient has mild atrophy of muscles of thigh and calf, loss of subcutaneous fat. Thiokol Operator consult. VT prophylaxis moderate risk: Lovenox 40 mg subcu daily. Discharge medication reconciliation done. Discharge follow-up instructions completed. Discharge process discussed with the patient and all questions were answered to patient's satisfaction. Discharged to SNF. Total time spent, exact 35 minutes on discharge meds reconciliation, examination, coordination of care with nurses and ancillary staff, review of imaging and blood test and discussion with the patient on follow-up instructions. Medications at Discharge Home Medications gabapentin 300 mg tablet 300 mg PO BID nerve pain 01/25/23 tizanidine 6 mg capsule 4 mg PO Q6H PRN PRN Muscle Spasm 01/25/23 albuterol sulfate 90 mcg/actuation aerosol inhaler 2 puff inhalation Q6H PRN shortness of breath or wheezing #8.5 grams 01/26/23 aspirin 81 mg tablet,delayed release 81 mg PO BREAKFAST #30 tabs 01/26/23 atorvastatin 40 mg tablet 40 mg PO QHS #30 tabs 01/26/23 clopidogrel 75 mg tablet 75 mg PO DAILY #30 tabs 01/26/23 dextromethorphan-guaifenesin ER 60 mg-1,200 mg tab,extend release,12hr (Mucinex DM) 1 tab PO Q12H 7 days #14 tabs 01/26/23 hydrochlorothiazide 25 mg tablet 12.5 mg PO DAILY bp #30 tabs 01/26/23 pantoprazole 40 mg tablet,delayed release 40 mg PO DAILY #30 tabs 01/26/23 prednisone 10 mg tablets in a dose pack See Taper PO DAILY #30 tabs 01/26/23 metoprolol succinate 25 mg tablet,extended release 24 hr 25 mg PO DAILY #30 tabs 01/27/23 Physical Exam Narrative Intermittent sometimes chest pain/back pain. Physical exam General: Alert, Oriented x3, Cooperative HEENT: Atraumatic, PERRLA, EOMI, Normocephalic Oral: Oral mucosa moist. No Gingival or Mucosal Lesions/ Ulcerations Neck: Supple, No JVD, Negative Carotid Bruits Chest wall/lungs: Funnel shaped chest. Air entry diminished in bilateral lung bases. Chronic bilateral expiratory rhonchi present. No wheezing. Cardiovascular: Regular rate, Regular Rhythm, Normal S1, Normal S2, No murmurs Abdomen: Bowel Sounds Present, Soft, Non Tender, Non-Distended : No renal angle tenderness. No suprapubic tenderness. Extremities: No edema, Capillary Refill Less than 3 Seconds Skin: No rashes, No breakdown Musculoskeletal: Muscle strength, 4/5 at left hip and knee joints, 4+/5 at right hip and knee joints. Status post left hip replacement Spine: Surgical scar of lumbar spine from L1-L5. No acute tenderness. ROM restricted at lumbar spine. Neurological: Cranial nerves II-XII grossly intact, DTR 2+/4. Psych/Mental Status: Flat affect. Weight / BMI Weight Weight: 167 lb 15.876 oz Body Mass Index (BMI) 21.5 ABG / Lab / Microbiology Data Result Diagrams: 01/27/23 05:37 01/27/23 05:37 D/C Instructions Discharge Diet: 2000 mg Sodium Diet Weight Bearing Status: Weight bearing as tolerated Call your doctor if you observe: Fever of 101 or Higher, Coldness, Increased Pain, Numbness or Tingling, Change in Color, Inability to urinate, Inability to have a bowel movement, Shortness of breath, Dizziness, Fainting spells, Swelling in the ankles, Chest pain, Prolonged hiccupping, Increased palpitations (irregular heartbeat) and Calf discomfort When: IN 2 WEEKS Meaningful Use Info Meaningful Use Diagnoses (Choose all that apply): None applicable Discharge Plan Admission Admit Date/Time: 01/25/23 18:07 Primary Reason for Your Visit: atypical chest pain, copd Attending Provider: Juan F Whiting Primary Care Provider: Care Physician,No Primary Discharge Orders/Prescriptions Prescriptions: New atorvastatin 40 mg Tablet 40 mg PO QHS Qty: 30 2RF clopidogrel 75 mg Tablet 75 mg PO DAILY Qty: 30 2RF aspirin 81 mg Tablet,Delayed Release (Dr/Ec) 81 mg PO BREAKFAST Qty: 30 3RF pantoprazole 40 mg Tablet,Delayed Release (Dr/Ec) 40 mg PO DAILY Qty: 30 0RF prednisone 10 mg tablets,dose pack See Taper PO DAILY Qty: 30 0RF Taper: Prednisone Taper 40 mg WITH BREAKFAST for 3 Days and 0 Hour 30 mg WITH BREAKFAST for 3 Days and 0 Hour 20 mg WITH BREAKFAST for 3 Days and 0 Hour 10 mg WITH BREAKFAST for 3 Days and 0 Hour Rx Instructions: 40 mg with breakfast for 3 Days; 30 mg for 3 Days; 20 mg for 3 Days; 10 mg for 3 Days albuterol sulfate 90 mcg/actuation HFA aerosol inhaler 2 puff inhalation Q6H PRN (Reason: shortness of breath or wheezing) Qty: 8.5 0RF dextromethorphan-guaifenesin [Mucinex DM] 60-1,200 mg tablet extended release 12 hr 1 tab PO Q12H 7 Days Qty: 14 0RF metoprolol succinate 25 mg tablet extended release 24 hr 25 mg PO DAILY Qty: 30 2RF Rx Instructions: Hold for heart less than 60 or systolic blood pressure less than 100 mmHg. Continued gabapentin 300 mg Tablet 300 mg PO BID tizanidine 6 mg Capsule 4 mg PO Q6H PRN PRN (Reason: Muscle Spasm) Changed hydrochlorothiazide 25 mg Tablet 12.5 mg PO DAILY Qty: 30 1RF Discontinued metoprolol tartrate 50 mg Tablet 50 mg PO BID Referrals / Follow Up: July Dunn MD [Med Staff - Active Staff] - 02/16/23 9:45 am Gerald Tao DO [Med Staff - Active Staff] - Within 1 Month (for PFT, Chr smoker) Care Physician,No Primary [Primary Care Provider] - [facility] Doctor,Out of [Non-Staff] - Disposition Disposition (needs filled in before D/C Order can be placed): Assisted Living Charges/Coding Visit Charges Inpatient E&M: 56899 Disch Hosp >30min
--- NOTE | 2023-01-29 15:51 | NURSING ---
This RN called Viet, admitting RN at [facility], to inform them that the patient's home medications were left here in our locked cabinet and we do not have any phone numbers to contact on file. Viet stated she would ask pt for a contact number and to let them know that his medications were here. Viet stated that she would call nurses station back here on PCU to let them know update.
== END 2023-01-29 10:51 | disposition home or self-care (01) ==
LOC: ED 18:18 → PCU 18:36
PROVIDERS: Family Medicine; Admitting Provider Internal Medicine; Emergency Provider Emergency Medicine; Visit Provider Internal Medicine
DX: J44.1 Chronic obstructive pulmonary disease with (acute) exacerbation (principal); E44.1 Mild protein-calorie malnutrition; E87.6 Hypokalemia; I25.10 Atherosclerotic heart disease of native coronary artery without angina pectoris; Z95.5 Presence of coronary angioplasty implant and graft; Z59.00 Homelessness unspecified; F17.210 Nicotine dependence, cigarettes, uncomplicated; I10 Essential (primary) hypertension; G89.29 Other chronic pain; Z79.899 Other long term (current) drug therapy; M48.061 Spinal stenosis, lumbar region without neurogenic claudication; M51.16 Intervertebral disc disorders with radiculopathy, lumbar region; Z68.21 Body mass index [BMI] 21.0-21.9, adult
CPT/HCPCS: 36415; 71045; 78452; 80048; 80061; 83735; 84439; 84443; 84484; 85025; 85610; 85730; 93005; 93017; 94640; 94668; 96361; 96365; 96366; 96372; 96375; 97110; 97162; 97166; 97530; 97535; 99221; 99252; 99285; 99406; A9500; J7030; A4216; G0378; G0463; J2785